=== PATIENT | female | born 1985 | race African-American/Black ===

== ENCOUNTER 2017-08-04 15:29 | Emergency (ER) | payer MEDICAID ==
[~2017-08-04] VITALS: Ht 144.8 cm; Wt 68.0 kg
--- NOTE | 2017-08-04 16:00 | NUR ---
PT TO ED ROOM 09. PT STATES SHE HAS ROOM RESERVED AT [facility] AND NEEDS MEDICAL CLEARANCE. A/A/O.
--- NOTE | 2017-08-04 16:05 | NUR ---
URINE OBTAINED FROM PATIENT AND SEND TO LAB.
--- NOTE | 2017-08-04 16:12 | NUR ---
URINE COLLECTED AND SENT TO LAB
--- NOTE | 2017-08-04 16:12 | NUR ---
SEEN AND EVALUATED BY ED PROVIDER.
[2017-08-04 16:25] LABS: APPEARANCE,URINE Turbid (CLEAR); BILIRUBIN,URINE SMALL (NEGATIVE); BLOOD, URINE Large Ery/uL (NEGATIVE); COLOR,URINE Red (YELLOW); KETONES,URINE 15 (NEGATIVE); LEUKOCYTE ESTERASE ,URINE Negative (NEGATIVE); NITRITE, URINE Negative (NEGATIVE); PROTEIN,URINE 100 mg/dl (NEGATIVE); UGLUCOSE Negative (NEGATIVE)
[2017-08-04 16:27] LABS: BASOPHILS # (AUTO) 0.5 /CMM (0.0-0.2); BASOPHILS % (AUTO) 2.1 % (0.0-2.0); EOSINOPHILS # (AUTO) 0.1 /CMM (0.0-0.7); EOSINOPHILS % (AUTO) 0.3 % (0.0-6.0); HEMATOCRIT 36 % (33-45); HEMOGLOBIN 11.9 g/dL (11.5-14.8); LYMPHOCYTES # (AUTO) 3.1 /CMM (0.8-4.8); LYMPHOCYTES % (AUTO) 14.4 % (20.0-44.0); MEAN CORPUSCULAR HEMOGLOBIN 28 PG (26.0-33.0); MEAN CORPUSCULAR HGB CONC 33 g/dl (31.0-36.0); MEAN CORPUSCULAR VOLUME 82 fL (82-100); MONOCYTES # (AUTO) 1.4 /CMM (0.1-1.30); MONOCYTES % (AUTO) 6.4 % (2.0-12.0); NEUTROPHILS # (AUTO) 16.4 /CMM (1.8-8.9); NEUTROPHILS % (AUTO) 76.8 % (43.0-81.0); PLATELET COUNT (AUTO) 641 /CMM (150-450); RDW COEFFICIENT OF VARIATION 17.4 (11.5-15.0); RED BLOOD CELL COUNT(AUTO) 4.31 MIL/uL (4.0-5.2); WHITE BLOOD COUNT (AUTO) 21.5 K/uL (4.3-11.0)
[2017-08-04 16:37] LABS: CALCIUM, SERUM 9.7 mg/dL (8.5-10.1); CARBON DIOXIDE 22 mmol/L (21-32); CHLORIDE 102 mmol/L (98-107); CREATININE 0.8 mg/dL (0.6-1.3); GLUCOSE 129 mg/dL (74-106); POTASSIUM 3.2 mmol/L (3.5-5.1); SODIUM SERUM 137 mmol/L (136-145); UREA NITROGEN, BLOOD 6 mg/dL (7-18)
[2017-08-04 16:43] LABS: ALANINE AMINOTRANSFERASE 17 U/L (12-78); ALBUMIN 4.5 g/dL (3.4-5.0); ALCOHOL, BLOOD < 3 mg/dL (0-0); ALKALINE PHOSPHATASE 90 U/L (46-116); ASPARTATE AMINOTRANSFERASE 15 U/L (15-37); BILIRUBIN,DIRECT 0.1 mg/dL (0.0-0.2); BILIRUBIN,TOTAL 0.7 mg/dL (0.2-1.0); TOTAL PROTEIN, SERUM 8.4 g/dL (6.4-8.2)
[2017-08-04 16:44] LABS: ACETAMINOPHEN < 2 ug/ml (10-30)
[2017-08-04 16:48] LABS: BACTERIA,URINE None seen /HPF (None Seen); RBC,URINE 51-80 /HPF (0-2); SQUAMOUS EPITHELIAL CELL,UR Few /HPF (None Seen); WBC,URINE 0-2 /HPF (0-3)
--- NOTE | 2017-08-04 17:37 | NUR ---
RN TO RN REPORT AT [facility] . *ASK FOR CHARGE NURSE
[2017-08-04 18:29] VITALS: BP 138/88
== END 2017-08-04 18:32 ==
LOC: ER 15:31
DX: Z02.79 Encounter for issue of other medical certificate (principal); F20.9 Schizophrenia, unspecified; F31.9 Bipolar disorder, unspecified; Z79.899 Other long term (current) drug therapy
CPT/HCPCS: 36415; 80048; 80076; 80305; 80329; 81001; 84703; 85025; 99285; A4606 ×2; G0480 ×2; Z7610 ×2; 81000-TC

== ENCOUNTER 2019-03-19 01:22 | Emergency (ER) | payer MEDICAID ==
[~2019-03-19] VITALS: Ht 144.8 cm; Wt 63.5 kg
--- NOTE | 2019-03-19 01:57 | NUR ---
PT BIBSELF C/C RLQ ABD PAIN X3 DAYS, -DYSURIA, FOUL ODOR FROM PERINEAL AREA. PT AOX4. NAD NOTED. RESP EVEN AND UNLABORED. PT ON MONITOR IN BED 6. WILL CONTINUE TO MONITOR.
[2019-03-19] MEDS ORDERED: HYDROCODONE/APAP 5/325MG 1 EACH TABLET PO ONE (02:30)
[2019-03-19] MEDS ORDERED: CEFTRIAXONE 1 G VIAL IM ONE (02:30)
[2019-03-19 02:38] LABS: BASOPHILS # (AUTO) 0.1 /CMM (0.0-0.2); BASOPHILS % (AUTO) 0.7 % (0.0-2.0); EOSINOPHILS % (AUTO) 0.2 % (0.0-6.0); HEMATOCRIT 39 % (33-45); HEMOGLOBIN 13.2 g/dL (11.5-14.8); LYMPHOCYTES % (AUTO) 16.9 % (20.0-44.0); MEAN CORPUSCULAR HGB CONC 34 g/dl (31.0-36.0); MEAN CORPUSCULAR VOLUME 95 fL (82-100); MONOCYTES # (AUTO) 0.8 /CMM (0.1-1.30); MONOCYTES % (AUTO) 6.6 % (2.0-12.0); NEUTROPHILS # (AUTO) 9.1 /CMM (1.8-8.9); NEUTROPHILS % (AUTO) 75.6 % (43.0-81.0); PLATELET COUNT (AUTO) 409 /CMM (150-450); RED BLOOD CELL COUNT(AUTO) 4.12 MIL/uL (4.0-5.2)
[2019-03-19 02:44] LABS: CALCIUM, SERUM 9.4 mg/dL (8.5-10.1); CREATININE 0.9 mg/dL (0.6-1.3); POTASSIUM 3.1 mmol/L (3.5-5.1)
[2019-03-19 02:50] LABS: ALBUMIN 4.4 g/dL (3.4-5.0); BILIRUBIN,DIRECT 0.2 mg/dL (0.0-0.2); BILIRUBIN,TOTAL 0.9 mg/dL (0.2-1.0); TOTAL PROTEIN, SERUM 7.9 g/dL (6.4-8.2)
[2019-03-19] MEDS ORDERED: HYDROCODONE/APAP 5/325MG 1 EACH TABLET ONE (03:09)
[2019-03-19] MEDS ORDERED: CEFTRIAXONE 1 G VIAL ONE (03:09)
--- NOTE | 2019-03-19 03:23 | NUR ---
PT MOVED TO BED 16 FOR PELVIC EXAM
[2019-03-19 04:00] VITALS: BP 121/74
--- NOTE | 2019-03-19 05:06 | NUR ---
Patient given written and verbal discharge instructions. Patient verbalizes understanding of instructions. Patient is ambulatory with steady gait. . Patient given list of available shelters in surrounding area. pt was also provided with snacks and tap card fro transportation.
== END 2019-03-19 05:14 | disposition home or self-care (01) ==
LOC: ER 01:25
DX: N83.201 Unspecified ovarian cyst, right side (principal); N80.1 Endometriosis of ovary; F20.9 Schizophrenia, unspecified; F31.9 Bipolar disorder, unspecified; F17.200 Nicotine dependence, unspecified, uncomplicated
CPT/HCPCS: 36415; 76705; 76856; 80048; 80076; 83690; 84702; 85025; 85730; 96372; 99284; A6402; J0696

== ENCOUNTER 2021-05-16 17:11 | Emergency (ER) | payer MEDICAID, OTHER ==
[~2021-05-16] VITALS: Ht 154.9 cm; Wt 68.0 kg
--- NOTE | 2021-05-16 17:44 | NUR ---
covid swab collected and sent to lab.
[2021-05-16 17:52] LABS: BASOPHILS # (AUTO) 0.1 K/uL (0.0-0.2); BASOPHILS % (AUTO) 0.5 % (0.0-2.0); EOSINOPHILS % (AUTO) 0.2 % (0.0-6.0); HEMATOCRIT 36 % (33-45); HEMOGLOBIN 12.1 g/dL (11.5-14.8); LYMPHOCYTES # (AUTO) 2.1 K/uL (0.8-4.8); LYMPHOCYTES % (AUTO) 15.3 % (20.0-44.0); MEAN CORPUSCULAR HGB CONC 34 g/dl (31.0-36.0); MEAN CORPUSCULAR VOLUME 113 fL (82-100); MONOCYTES % (AUTO) 14.4 % (2.0-12.0); NEUTROPHILS # (AUTO) 9.5 K/uL (1.8-8.9); NEUTROPHILS % (AUTO) 69.6 % (43.0-81.0); PLATELET COUNT (AUTO) 266 K/uL (150-450); RED BLOOD CELL COUNT(AUTO) 3.19 MIL/uL (4.0-5.2); WHITE BLOOD COUNT (AUTO) 13.6 K/uL (4.3-11.0)
[2021-05-16 17:58] LABS: CARBON DIOXIDE 24 mmol/L (21-32); CHLORIDE 97 mmol/L (98-107); CREATININE 1.1 mg/dL (0.6-1.3); GLUCOSE 127 mg/dL (74-106); POTASSIUM 2.9 mmol/L (3.5-5.1); SODIUM SERUM 139 mmol/L (136-145); UREA NITROGEN, BLOOD 9 mg/dL (7-18)
[2021-05-16 18:08] LABS: ALANINE AMINOTRANSFERASE 72 U/L (12-78); ALBUMIN 3.8 g/dL (3.4-5.0); ALKALINE PHOSPHATASE 157 U/L (46-116); ASPARTATE AMINOTRANSFERASE 271 U/L (15-37); BILIRUBIN,DIRECT 0.9 mg/dL (0.0-0.2); BILIRUBIN,TOTAL 1.8 mg/dL (0.2-1.0)
[2021-05-16 18:10] LABS: ACETAMINOPHEN 0 ug/ml (10-30)
[2021-05-16 18:11] LABS: ALCOHOL, BLOOD < 3 mg/dL (0-0)
[2021-05-16] MEDS ORDERED: POTASSIUM CHLORIDE 20 MEQ TAB.PRT.SR PO ONE ×2 (18:30→19:30)
[2021-05-16 18:48] LABS: LYMPHOCYTES % (MANUAL) 18 % (16-48); MONOCYTES % (MANUAL) 13 % (0-11.0); NEUTROPHILS % (MANUAL) 69 (42-76)
[2021-05-16] MEDS ORDERED: OLANZAPINE 5 MG TABLET PO ONE (20:30)
--- NOTE | 2021-05-16 20:30 | NUR ---
URINE SPECIMEN COLLECTED AND SENT TO LAB.
--- NOTE | 2021-05-16 20:30 | NUR ---
ASSUMED CARE AT 2030. PT BIBFAMILY C/O AUDITORY HALLUCINATIONS AND SI WITHOUT A SPECIFIC PLAN. PT DENIES HI.PT AAOX4 BREATHING EVENLY AND UNLABORED. PT ATTACHED TO MONITOR AND POX. PT GIVEN BLANKET AND CALL LIGHT WITHIN REACH. NEEDS ATTENDED TO.
[2021-05-16] MEDS ORDERED: OLANZAPINE 5 MG TABLET ONE (20:36)
[2021-05-16 20:47] LABS: BILIRUBIN,URINE MODERATE (NEGATIVE); COLOR,URINE YELLOW (YELLOW); LEUKOCYTE ESTERASE ,URINE MODERATE (NEGATIVE); NITRITE, URINE NEGATIVE (NEGATIVE); PH,URINE 6.5 (5.0-8.0); PROTEIN,URINE TRACE mg/dl (NEGATIVE); UGLUCOSE NEGATIVE (NEGATIVE)
[2021-05-16 21:05] LABS: BACTERIA,URINE 3+ /HPF (None Seen); WBC,URINE 21-50 /HPF (0-3)
[2021-05-16] MEDS ORDERED: CEPHALEXIN MONOHYDRATE 500 MG CAPSULE PO ONE (21:38)
[2021-05-16] MEDS: CEPHALEXIN MONOHYDRATE 500 MG CAPSULE PO SCH (21:44)
--- NOTE | 2021-05-16 22:26 | NUR ---
CLINICAL AND FACESHEET FAXED TO [facility]TAKE FOR VOLUNTARY PSYCH ADMISSION.
--- NOTE | 2021-05-17 00:35 | NUR ---
pt resting comfortably. VSS
--- NOTE | 2021-05-17 04:50 | NUR ---
[facility] REQUESTING POTASSIUM REDRAW BEFORE ACCEPTING PT.
--- NOTE | 2021-05-17 04:56 | NUR ---
PT REFUSING REPEAT BLOOD DRAW.
--- NOTE | 2021-05-17 06:06 | NUR ---
BLOOD DRAWN BY FEDER[employer]IATION COMMISSIONER FOR REPEAT POTASSIUM.
[2021-05-17 06:23] LABS: CALCIUM, SERUM 8.8 mg/dL (8.5-10.1); CREATININE 0.7 mg/dL (0.6-1.3)
[2021-05-17] MEDS ORDERED: CEPH500T PO (06:55)
--- NOTE | 2021-05-17 07:15 | NUR ---
FACE SHEE AND CLINICALS ALONG W/ RECENT POTASSIUM LEVEL WAS FAXED TO [facility],
--- NOTE | 2021-05-17 08:37 | NUR ---
CALLED TO FOLLOW UP CASE AND SPOKE TO ELMIRA. AT THE MOMENT "WAITING FOR CHARGE NURSE" WAS THE ONLY ANSWER GIVEN PER ELMIRA. STATED WILL CALL BACK WHEN.
[2021-05-17] MEDS ORDERED: CEPHALEXIN MONOHYDRATE 500 MG CAPSULE PO ONE ×2 (08:58→16:32)
[2021-05-17] MEDS: CEPHALEXIN MONOHYDRATE 500 MG CAPSULE PO SCH ×2 (09:00→16:34)
--- NOTE | 2021-05-17 10:35 | NUR ---
Social Service consult: Social service consult requested for suicidal ideation, hallucinations and homelessness. Pt is a 35-year-old, female. SW met with pt at her bedside in the emergency department. Pt presented alert and oriented x2, name and time. Pt was not oriented to place or situation. Pt presented with a flat affect. Pt presented lethargic. Pt appeared appropriately groomed. Per chart, pt was brought in by family on 05/16/21 with complaints of auditory hallucinations and suicidal ideation without a plan. Pt will be transferred to [facility] for further evaluation, if accepted. Per pts toxicology report, pt is positive for amphetamine, cocaine, and cannabis. Pt stated that she is currently homeless. Pt stated that she receives [employer] as a source of income. Pt denied current suicidal or homicidal ideation and hallucinations. Pt denied history of substance use. Pt was lethargic and unable to provide SW with adequate history to complete assessment. Pt stated, "speak to my sister." Pt provided SW with consent to speak with pts sister, Marcie Conroy, . Pt confirmed request to be transferred to [facility] for psychiatric admission. SW contacted pts sister, Marcie Conroy. She stated that the pt has been homeless for the last 2-3 years but has been living with others intermittently. Pt is ambulatory. Pt has had a history of substance use and pt has been "self-medicating and sleeping a lot for months at a time." Pt has a history of Schizophrenia and Bipolar Disorder and has not had access to medication. Pt has a history of auditory and visual hallucinations. Pt was recently having a conversation with herself. Pt has been increasingly paranoid and has had thoughts that "someone will put something in her food, put a hex on her, or hurt her." Pt has expressed to Marcie that she has been feeling hopeless and depressed. Pt has a hx of multiple psychiatric admissions. SW offered the pt homeless and mental health resources. Pt accepted the resources and thanked SW. Pt signed the homeless waiver and SW filed waiver in the pts chart. Pts clinicals have already been faxed to [facility] for review. PLAN: Pt will discharge to [facility], if accepted. No further SS intervention at this time, however, SW will remain available as needed. RESOURCES: Year-round shelters: [address] [address] ; [facility] [place] [address] [place] [address]; [facility] Rywkvip1731 [facility] [address] SPA 4 | [facility] Recreation [place] Provider: First to Serve Address: [address], [address] # of Beds: 48 Population Served: [facility] Provider: First to Serve Address: [address] [facility], [address] # of Beds: 73 Population Served: [facility] 6 | [facility] Provider: Home at Last Address: [address] [facility], [address] # of Beds: 63 Population Served: [facility] 3 | [facility] Provider: [facility] [place] Address: [address] [place] [address] # of Beds: 75 Population Served: [facility] 8 | [facility] Provider: [facility] [place] Address: [address] [facility], [address] # of Beds: 80 Population Served: [facility] 1 | [facility] Provider: [facility] [place] Address: [address] [place] [address], [address] # of Beds: 85 Population Served: [facility] 2 | [facility] Provider: June [facility] Address: Confidential (please call for location) # of Beds: 52 Population Served: [facility] 4 | [facility] Provider: [facility] Address: [address] [facility], [address] # of Beds: 49 Population Served: [facility] Provider: First To Serve Address: [address] [facility], [address] # of Beds: 27 Population Served: [facility] Hygiene: [facility] Hospital[facility]: [address] [address] Pett[address] [place] ; [facility] [address] [place] City[place]oo [facility] ; [facility] [address] [place] . Food Resources: [place] [employer] at [facility]- [address] [place]; Meet Each Need with Dignity ([facility]) [address] Motion Picture & Television HospitalArti [place]; [facility] Food Pantry 4393 [facility]; [facility] [address] [facility] [address]. Mental Health resources provided: [facility] [address] [place] [address] ; [facility] [address] [facility] [address], [place] [address] ; [facility] [address] [place], [place] [phone] ; [facility] [address] [place], [place] [phone] Healthcare Clinics: [facility] [address] [facility], [address] [place]. [place] ; [facility] [address] [facility] [address] [place] [address]; [facility] [address] [place] [address] [phone] Counseling--Outpatient [facility] [address] [facility], [place] [address] (Specializes in in-depth psychotherapy for emotional distress: anxiety, depression, interpersonal conflicts, life transitions, childhood abuse) PSYCHIATRIC OUTPATIENT SERVICES [facility] Partial Hospitalization and Intensive Outpatient Program (Managed Care and [place] Only) [address] [facility] [phone] [facility] Partial Hospitalization and Outpatient Program [address] [place] [address] [facility] Partial Hospitalization and Outpatient Program [address] [place] Cassie [facility] [place] [address] [facility] [address] [address] [place] [address] [facility] Partial Hospitalization and Outpatient Program [address] eli[place], [place] [phone]
--- NOTE | 2021-05-17 12:20 | NUR ---
PT PROVIDED WITH A MEAL
--- NOTE | 2021-05-17 13:11 | NUR ---
CALLED CHRISSIE FROM [facility]. AT THE MOMENT ON HOLD FOR ALL ADMISSIONS DUE TO HAVING 2 POSITIVE COVID PATIENT IN UNIT. NO CURRENT BED ASSIGNMENT WILL CALL US BACK. PER CHRISSIE MIGHT BE ABLE TO ACCOMODATE PATIENT UNTIL AFTER 1700.
--- NOTE | 2021-05-17 14:30 | NUR ---
PT IN BED RESTING WITH EYES CLOSE. NAD NOTED
--- NOTE | 2021-05-17 17:00 | NUR ---
CALLED TO SPEAK WITH CHRISSIE FROM [facility]. UNABLE TO TALK SO SPOKE WITH JOSE JUAN AND ARE CURRENLTY AWAITING FOR KURT RUIZ TO GIVE US BED ASSIGNMENT.
--- NOTE | 2021-05-17 17:30 | NUR ---
SPOKE TO [facility]. NO BED ASSIGNMENT YET. WILL CALL US BACK.
--- NOTE | 2021-05-17 18:30 | NUR ---
CALLED TO FOLLOW UP WITH [facility] REGARDING ADMISSION. SPOKE TO JOSE JUAN AND THEY ARE REQUESTING UPDATED VITAL SIGNS. NOTIFIED JOSE JUAN THAT PATIENT HAVE BEEN PUSHED BACK ADMISSION SINCE THE MORNING BUT PER HOUSE [facility] REQUESTING 1800 VITAL SIGNS IN ORDER TO ACCOMODATE.
--- NOTE | 2021-05-17 20:00 | NUR ---
pt resting with eyes closed. VSS
[2021-05-17] MEDS ORDERED: OLANZAPINE 5 MG TABLET ONE (20:14)
[2021-05-17] MEDS ORDERED: OLANZAPINE 5 MG TABLET PO ONE (20:30)
--- NOTE | 2021-05-17 22:45 | NUR ---
Patient is resting comfortably in bed with eyes closed. Easily aroused. VSS
--- NOTE | 2021-05-18 00:45 | NUR ---
pt attached to monitor and pox. vss
--- NOTE | 2021-05-18 03:10 | NUR ---
PT ACCEPTED TO [facility]. [phone] EXTENSION 6387 ROOM NUMBER AND DOCTOR PROVIDED UPON GIVING REPORT.
--- NOTE | 2021-05-18 03:20 | NUR ---
[facility] called for transport. Trip#[id number]
--- NOTE | 2021-05-18 03:30 | NUR ---
Patient is resting comfortably in bed with eyes closed. Easily aroused. VSS
--- NOTE | 2021-05-18 03:50 | NUR ---
[facility] eta 0848.
--- NOTE | 2021-05-18 05:06 | NUR ---
called [facility] and was infromed by Sana, that they have no record of this patient being accepted. Reequested that we fax over clinical info to [phone]
--- NOTE | 2021-05-18 05:07 | NUR ---
clinical info faxed to [facility]
--- NOTE | 2021-05-18 05:27 | NUR ---
Palmer at [facility] intake will fax over a psych form to [facility] to see if pt will be accepted there. Per Palmer, "we may have to start the process over again because yesterday during day shift, pt refused to go to to [facility]" Unknown person notified transfer center that pt refused to be transferred to [facility]. Per pt, she is willing to go to either facility.
--- NOTE | 2021-05-18 07:33 | NUR ---
CALLED SALES TEAM LEADER MARIA EUGENIA FROM [facility] AND AT THE MOMENT HAVE NO FEMALE BEDS. MAY BE ABLE TO ACCOMODATE AFTER 11 WHEN THEY HAVE DISCHARGES.
--- NOTE | 2021-05-18 07:49 | NUR ---
RECIEVED A CALL FROM MARIA EUGENIA FROM [facility]. PT ACCEPTED TO UNIT. PLEASE CALL REPORT AT [phone] AND ASK TO BE CONNECTED TO UNIT 1.
--- NOTE | 2021-05-18 07:54 | NUR ---
REPORT GIVEN TO RUDI MANN AT [facility].
[2021-05-18] MEDS ORDERED: CEPHALEXIN MONOHYDRATE 500 MG CAPSULE PO ONE (08:39)
[2021-05-18] MEDS: CEPHALEXIN MONOHYDRATE 500 MG CAPSULE PO SCH (08:57)
[2021-05-18 08:58] VITALS: BP 118/77
--- NOTE | 2021-05-18 08:58 | NUR ---
patient picked up by private ambulance going to [facility] in no distress.
== END 2021-05-18 08:58 ==
LOC: ER 17:17
DX: R45.851 Suicidal ideations (principal); F15.10 Other stimulant abuse, uncomplicated; F14.10 Cocaine abuse, uncomplicated; F12.10 Cannabis abuse, uncomplicated; N39.0 Urinary tract infection, site not specified; E87.6 Hypokalemia; F19.10 Other psychoactive substance abuse, uncomplicated; Z20.822 Contact with and (suspected) exposure to COVID-19; F20.9 Schizophrenia, unspecified; F31.9 Bipolar disorder, unspecified; Z91.14 Patient's other noncompliance with medication regimen; D72.829 Elevated white blood cell count, unspecified
CPT/HCPCS: 36415 ×3; 80048 ×2; 80076; 80143; 80307; 80320; 81001; 84702; 85007; 85025; 87086; 87426; 99285; C9803; G0480

== ENCOUNTER 2021-05-18 11:21 | Emergency (ER) | payer OTHER ==
[~2021-05-18] VITALS: Ht 154.9 cm; Wt 68.0 kg
[~2021-05-18 11:21] MED LIST: CEPH500T PO
--- NOTE | 2021-05-18 11:30 | NUR ---
SENT BACK FROM [facility], NURSES AT PSYCH PLACE REQUESTING NEW K+ READ AND TEST S/P BEING MEDICALLY CLEARED. PATIENT HAS NO COMPLAINTS. PATIENT WAS INITIALLY ACCEPTED AT [facility]. PT STILL WANTS TO GO VOLUNTARY AT A PSYCHIATRIC FACILITY FOR SUICIDAL IDEATION WITH NO SPECIFIC PLAN. PATIENT A/OX4, AMBULATORY WITH STEADY GAIT. NO DISTRESS NOTED. CALLED SECURITY FOR WANDING. BELONGINGS PLACED IN THE LOCKER ROOM.
[2021-05-18] MEDS ORDERED: POTASSIUM CHLORIDE 20 MEQ TAB.PRT.SR PO ONE ×3 (11:36→12:30)
--- NOTE | 2021-05-18 11:44 | NUR ---
PHLEB AT BEDSIDE. COVID SWAB SENT.
--- NOTE | 2021-05-18 11:53 | NUR ---
URINE SENT TO LAB.
[2021-05-18 11:55] LABS: BASOPHILS # (AUTO) 0.1 K/uL (0.0-0.2); BASOPHILS % (AUTO) 0.8 % (0.0-2.0); EOSINOPHILS % (AUTO) 0.9 % (0.0-6.0); HEMATOCRIT 38 % (33-45); HEMOGLOBIN 12.8 g/dL (11.5-14.8); LYMPHOCYTES % (AUTO) 22.8 % (20.0-44.0); MEAN CORPUSCULAR HGB CONC 33 g/dl (31.0-36.0); MEAN CORPUSCULAR VOLUME 114 fL (82-100); MONOCYTES # (AUTO) 1.1 K/uL (0.1-1.30); MONOCYTES % (AUTO) 12.4 % (2.0-12.0); NEUTROPHILS # (AUTO) 5.6 K/uL (1.8-8.9); NEUTROPHILS % (AUTO) 63.1 % (43.0-81.0); PLATELET COUNT (AUTO) 337 K/uL (150-450); RED BLOOD CELL COUNT(AUTO) 3.36 MIL/uL (4.0-5.2); WHITE BLOOD COUNT (AUTO) 8.9 K/uL (4.3-11.0)
[2021-05-18 12:02] LABS: CARBON DIOXIDE 28 mmol/L (21-32); CHLORIDE 102 mmol/L (98-107); CREATININE 0.7 mg/dL (0.6-1.3); GLUCOSE 145 mg/dL (74-106); POTASSIUM 3.2 mmol/L (3.5-5.1); SODIUM SERUM 139 mmol/L (136-145); UREA NITROGEN, BLOOD 6 mg/dL (7-18)
[2021-05-18 12:07] LABS: BILIRUBIN,URINE MODERATE (NEGATIVE); COLOR,URINE DARK YELLOW (YELLOW); LEUKOCYTE ESTERASE ,URINE Negative (NEGATIVE); NITRITE, URINE Negative (NEGATIVE); PH,URINE 6.5 (5.0-8.0); PROTEIN,URINE 30 mg/dl (NEGATIVE); UGLUCOSE Negative (NEGATIVE)
[2021-05-18 12:07] LABS: ACETAMINOPHEN 0 ug/ml (10-30); ALANINE AMINOTRANSFERASE 61 U/L (12-78); ALBUMIN 3.5 g/dL (3.4-5.0); ALCOHOL, BLOOD < 3 mg/dL (0-0); ALKALINE PHOSPHATASE 141 U/L (46-116); ASPARTATE AMINOTRANSFERASE 164 U/L (15-37); BILIRUBIN,DIRECT 0.5 mg/dL (0.0-0.2); BILIRUBIN,TOTAL 0.9 mg/dL (0.2-1.0); TOTAL PROTEIN, SERUM 7.6 g/dL (6.4-8.2)
[2021-05-18] MEDS ORDERED: POTASSIUM CL. PREMIX PERIPHER. 200 ML ONE (12:20)
[2021-05-18] MEDS: POTASSIUM CL. PREMIX PERIPHER. 50 ML IV SCH ×2 (12:30→13:31)
[2021-05-18 12:57] LABS: BACTERIA,URINE Moderate /HPF (None Seen); RBC,URINE 0-2 /HPF (0-2); SQUAMOUS EPITHELIAL CELL,UR Moderate /HPF (None Seen)
[2021-05-18 12:58] LABS: URINE AMORPHOUS URATE Moderate /HPF (None Seen)
[2021-05-18 15:20] LABS: CALCIUM, SERUM 8.9 mg/dL (8.5-10.1); CREATININE 0.6 mg/dL (0.6-1.3); POTASSIUM 3.9 mmol/L (3.5-5.1)
--- NOTE | 2021-05-18 15:37 | NUR ---
PATIENT'S REPEAT POTASSIUM IS NORMAL, LAST ORDER OF KDUR PO CANCELLED, INSTRUCTION GIVEN BY DR. QUINONEZ.
[2021-05-18 15:44] VITALS: BP 131/92
--- NOTE | 2021-05-18 15:44 | NUR ---
PATIENT IS RESTING IN BED, NO DISTRESS NOTED.
--- NOTE | 2021-05-18 15:51 | NUR ---
[facility] AWAITING CALL BACK FOR ADMITTANCE.
--- NOTE | 2021-05-18 16:26 | NUR ---
"SS consult: SS consult requested for SI and possible homelssness. The pt. is a 35 year old Black female who came in for medical clarance for pending admisison to [facility] on a voluntary basis. SW met with pt. bedside. The pt. is depressed with distressed affect. Pt. is guarded and refused to comply with intervew. Pt. requestd that SW return at a later time. Pt.began crying. SW attempted to validate pt.'s feelings. Pt. did not want to elaborate about what was making her cry. SW placed homeless waiver and resources in pt.'s chart for nursing to follow up upon discharge. SW will remain available as needed. Resources provided include: Year-round shelters: [place] [address] [place] [address] ; [facility] [place] [address] [place] [address]; [facility] [facility] Lpsvmve[address]77 [facility] [address] Winter Shelters: [facility] Provider: [facility] Address: [address] [facility], [address] # of Beds: 47 Population Served: [facility] 6 | [facility] Sana [place] Provider: Home at Last Address: [address], [address] # of Beds: 66 Population Served: [facility] [place] Provider: First to Serve Address: [address] [facility], [address] # of Beds: 56 Population Served: [facility] Vern ChapitoArti JarquinOzan Provider: /[facility] Address: [address] [facility], [address] # of Beds: 49 Population Served: [facility] 8 | [facility] Provider: First to Serve Address: [address] [facility], [address] # of Beds: 37 Population Served: [facility] Hygiene: [facility]: [address] [address]lin Pett[address] [place] ; [facility] [address] [facility] [place] ; [facility] [address] [place] . Food Resources: [place] [employer] [facility] at [facility]- [address]. [place]; Meet Each Need with Dignity ([facility]) [address] [facility]; [facility] Food Pantry 4310 [facility]; [facility] 3723 [facility]. Mental Health resources provided: [facility] [address] [place], [place] [phone] ; [facility] [address] [facility] [address] 2, [place], [place] [phone] ; [facility] [address] [facility] [place], [place] [phone] ; [facility] [address] [place], [place] [phone] Healthcare Clinics: [facility] [address] [facility], [address] [place]. [place] ; [facility] [address] [facility] [address] [place] [address]; [facility] [address] [place] [address] [phone]) [phone] Counseling--Outpatient [facility] [address] [facility], [place] [address] (Specializes in in-depth psychotherapy for emotional distress: anxiety, depression, interpersonal conflicts, life transitions, childhood abuse) [facility] [address] [place] [address] (Assist with solving problem marital difficulties, separation & divorce, aging parents, & grief, chronic & terminal illness) [facility] [address] [place] [address] (Deal with loss & grief, anxiety, marital difficulties) Homebound/Mental Health Services [address] [facility], [address] [place] [address] (Provide in-home mental services to people who are incapable of leaving their homes) Organization for Needs of the Elderly Senior Service/Resource Center [address] [place] [address] [facility] [address] [place] [address] PSYCHIATRIC OUTPATIENT SERVICES [facility] Partial Hospitalization and Intensive Outpatient Program (Managed Care and [place] Only)[address] [facility]. [facility] [phone] [facility] Partial Hospitalization and Outpatient Ichmsqd36241 [facility] [address] [place], [place] [phone] [facility] Mental Health [place] Pzq76165 [facility] [address] [place], [place] [phone] [facility] Partial Hospitalization and Outpatient Jhklhka61001 [place], [phone] Substance Abuse resources provided included: [facility] Substance Abuse Self-Helpline ([facility]) ; CRI -HELP [address] [facility]. [place] [address] ; [facility] [address] [facility] [address] ; [facility] [address] [facility] vdSt. Peter's Hospital [address] ; [facility] [address] [facility] [address] ; [facility] 4940 [facility] [address] ; [facility] 909 [facility] [phone] ; [facility] Substance Abuse Helpline([facility] ; [facility] Family Counseling ; [facility] [place]; [facility] [place]; Cri-Help [place]; I-AD[facility] Inter [facility] Drug Abuse Recovery Maxim Ericsrinivasan; [place] [facility] Andrés; Altonah Sumner Juliannecitizens baptist; [facility], [facility]. [place]; Alcoholics Anonymous -SFV; Rb-Pfxn-Fbdsbum ; Marijuana Anonymous -SFV; Narcotics Anonymous www.na.org;"
--- NOTE | 2021-05-18 19:08 | NUR ---
PATIENT IS ASLEEP, EASILY AROUSABLE. NO DISTRESS NOTED.
--- NOTE | 2021-05-18 19:11 | NUR ---
CALLED TO FOLLOW UP WITH PATIENT STATUS ON PLACEMENT WITH [facility]. AT THE MOMENT ARE CURRENTLY REVIEWING CLINICALS AT [facility]. I ASKED PATIENT IF SHE IS OKAY WITH [facility] AND SHE STATES "YES", NOTIFIED RJ WITH [facility] AND HE WILL FAX CLINICALS OVER TO [facility]. CURRENTLY AWAITING CALL BACK.
--- NOTE | 2021-05-18 20:44 | NUR ---
ACCEPTED AT [facility] UNIT [address] DR ORTIZ
--- NOTE | 2021-05-18 20:45 | NUR ---
Patient is resting comfortably in bed with eyes closed. Easily aroused. VSS
--- NOTE | 2021-05-18 20:52 | NUR ---
PT WILL BE TRANSPORTED TO [facility] IN 75 TO 90 MINS PER ALEXI AT [facility].
--- NOTE | 2021-05-18 22:13 | NUR ---
REPORT GIVEN TO MELISSA MANN FOR CONTINUATION OF CARE.
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
--- NOTE | 2021-05-18 22:52 | NUR ---
PT WAS PICKED UP BY [facility] AND WAS TRANSFERRED TO [facility] IN STABLE CONDITION
== END 2021-05-18 22:52 ==
LOC: ER 11:29
DX: E87.6 Hypokalemia (principal); Z20.822 Contact with and (suspected) exposure to COVID-19; F31.9 Bipolar disorder, unspecified; F20.9 Schizophrenia, unspecified
CPT/HCPCS: 36415; 80048 ×2; 80076; 80143; 80307; 80320; 81001; 84703; 85025; 87086; 87426; 96365; 96366; 99285; C9803; J3480; G0480

== ENCOUNTER 2023-03-12 21:54 | Emergency (ER) | payer MEDICAID ==
[~2023-03-12] VITALS: Ht 175.3 cm; Wt 95.3 kg
[~2023-03-12 21:54] MED LIST changes: +METR500T PO
--- NOTE | 2023-03-12 22:22 | NUR ---
[id number]. CC LOW BP 67/66, SEVERE ABDL PAIN X3 HRS. + SEROQUEL TAB ASSEMBLY WORKER. PT HX OF ENDOMETRIOSIS.
--- NOTE | 2023-03-12 22:23 | NUR ---
20GA TO LEFT AC ESTABLISHED; BLOOD WORK COLLECTED AND SENT TO LAB
--- NOTE | 2023-03-12 22:25 | NUR ---
AT BEDSIDE FOR EVAL
--- NOTE | 2023-03-12 22:25 | NUR ---
PT UNABLE TO PROVIDE URINE AT THIS TIME
--- NOTE | 2023-03-12 23:05 | NUR ---
PATIENT TAKEN TO CT VIA MARIEL
--- NOTE | 2023-03-12 23:15 | NUR ---
PATIENT RETURNED FROM CT
[2023-03-12 23:56] LABS: BASOPHILS % (AUTO) 0.4 % (0.0-2.0); EOSINOPHILS % (AUTO) 2.2 % (0.0-6.0); HEMATOCRIT 38 % (33-45); HEMOGLOBIN 12.5 g/dL (11.5-14.8); LYMPHOCYTES # (AUTO) 2.6 K/uL (0.8-4.8); LYMPHOCYTES % (AUTO) 27.5 % (20.0-44.0); MEAN CORPUSCULAR HGB CONC 33 g/dl (31.0-36.0); MEAN CORPUSCULAR VOLUME 91 fL (82-100); MONOCYTES # (AUTO) 0.7 K/uL (0.1-1.30); MONOCYTES % (AUTO) 7.6 % (2.0-12.0); NEUTROPHILS # (AUTO) 5.9 K/uL (1.8-8.9); NEUTROPHILS % (AUTO) 62.3 % (43.0-81.0); PLATELET COUNT (AUTO) 342 K/uL (150-450); RED BLOOD CELL COUNT(AUTO) 4.21 MIL/uL (4.0-5.2); WHITE BLOOD COUNT (AUTO) 9.4 K/uL (4.3-11.0)
[2023-03-12 23:58] LABS: CALCIUM, SERUM 9.9 mg/dL (8.5-10.1); CREATININE 1.3 mg/dL (0.6-1.3)
[2023-03-13 00:03] LABS: BILIRUBIN,DIRECT 0.1 mg/dL (0.0-0.2); BILIRUBIN,TOTAL 0.5 mg/dL (0.2-1.0); TOTAL PROTEIN, SERUM 8.2 g/dL (6.4-8.2)
[2023-03-13] MEDS ORDERED: POTASSIUM CHLORIDE 20 MEQ TAB.PRT.SR PO ONE ×2 (01:00→01:41)
[2023-03-13] MEDS ORDERED: CIPR-262 PO (01:01)
[2023-03-13] MEDS ORDERED: HYDROCODONE/APAP 5/325MG TABLET ONE ×2 (02:03→11:57)
--- NOTE | 2023-03-13 02:26 | NUR ---
PT TOLERATED EATING SANDWICH AND DRINKING FLUIDS
--- NOTE | 2023-03-13 02:26 | NUR ---
PT TOLERATED ORAL PAIN MED FOR C/O ABDOMINAL PAIN
[2023-03-13] MEDS ORDERED: HYDROCODONE/APAP 5/325MG TABLET PO ONE ×2 (02:30→12:00)
--- NOTE | 2023-03-13 02:36 | NUR ---
PT NOTIFIED OF DISCHARGE STATUS, BUT STATES SHE CAN'T MOVE HER BODY SHE STILL HAS ABDOMINAL PAIN. VS REMAIN STABLE. NO N/V AFTER EATING A SANDWICH AND DRINKING FLUIDS.
[2023-03-13 07:17] LABS: ALCOHOL, BLOOD < 3 mg/dL (0-10)
--- NOTE | 2023-03-13 08:33 | NUR ---
COVID SWAB TAKEN
--- NOTE | 2023-03-13 10:30 | NUR ---
FAXED FACESHEET AND CLINICALS TO [facility]
--- NOTE | 2023-03-13 12:38 | NUR ---
URINE SAMPLE SENT TO LAB
--- NOTE | 2023-03-13 13:01 | NUR ---
FAXED UPDATED CLINICALS TO [facility]
[2023-03-13 14:45] VITALS: BP 119/60
[2023-03-13 15:47] LABS: BILIRUBIN,URINE 1+ (NEGATIVE); LEUKOCYTE ESTERASE ,URINE TRACE (NEGATIVE); NITRITE, URINE POSITIVE (NEGATIVE); PH,URINE 6.5 (5.0-8.0); PROTEIN,URINE 3+ mg/dl (NEGATIVE); UGLUCOSE TRACE mg/dL (NEGATIVE)
[2023-03-13 15:54] LABS: COLOR,URINE RED (YELLOW)
--- NOTE | 2023-03-13 15:55 | NUR ---
NEW URINE SAMPLE COLLECTED AND SENT TO LAB
--- NOTE | 2023-03-13 15:55 | NUR ---
LOSS CONTROL MANAGER AT BEDSIDE
[2023-03-13 16:04] LABS: BACTERIA,URINE 2+ /HPF (None Seen); RBC,URINE TOO NUMEROUS TO COUN /HPF (0-2); SQUAMOUS EPITHELIAL CELL,UR 0-2 /HPF (None Seen)
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
--- NOTE | 2023-03-13 16:51 | NUR ---
FAXED UA RESULTS TO [facility]
--- NOTE | 2023-03-13 17:24 | NUR ---
DONNY CALLED BACK AND PT IS ACCEPTED AT [facility]. COMMUNICATIONS ENGINEER WILL NEUROLOGY MANAGER PT.
--- NOTE | 2023-03-13 17:48 | NUR ---
REPORT GIVEN TO [facility] FOR [facility]
--- NOTE | 2023-03-13 18:40 | NUR ---
CURRENTLY ON HOLD WITH [facility]
[2023-03-13] MEDS ORDERED: KETOROLAC TROMETHAMINE INJ 30 MG/ML VIAL IV ONE (19:00)
[2023-03-13] MEDS ORDERED: KETOROLAC TROMETHAMINE INJ 30 MG/ML VIAL ONE (19:10)
--- NOTE | 2023-03-13 19:51 | NUR ---
REPORT FILED WITH [employer] MUSIC AGENT #[id number]. INCIDENT #[id number].
--- NOTE | 2023-03-13 20:44 | NUR ---
[employer] at bed side
--- NOTE | 2023-03-13 21:54 | NUR ---
PER LAPEzekiel, PT REFUSED TO GO WITH [employer] TO A [facility].
--- NOTE | 2023-03-13 22:00 | NUR ---
PER [employer] PATIENT IS CLEAR ON THEIR BEHALF. PATIENT IS ALSO MEDICALLY CLEAR FROM DR NEWTON
[2023-03-13] MEDS ORDERED: OLANZAPINE ZYDIS 5 MG TAB.RAPDIS SL ONE (22:30)
--- NOTE | 2023-03-13 23:12 | NUR ---
pt was transferred to [facility] in stable condition
--- NOTE | 2023-03-13 23:15 | NUR ---
PATIENT PICKUP BY [facility] IN A STABLE- COOPERATIVE BEHAVIOR FOR TRANSFER- [facility].
== END 2023-03-13 23:15 ==
LOC: ER 21:55
DX: K52.9 Noninfective gastroenteritis and colitis, unspecified (principal); R10.9 Unspecified abdominal pain; F31.9 Bipolar disorder, unspecified; F20.9 Schizophrenia, unspecified; Z20.822 Contact with and (suspected) exposure to COVID-19
CPT/HCPCS: 99285; 74176; 85025; 80048; 87086; 83690; 80076; 84703; 81001; 36415 ×2; 84702; 80143; 80320; 96374; 87426; 80307; J1885; C9803; G0480

== ENCOUNTER 2023-05-25 05:25 | Emergency (ER) | payer MEDICAID ==
[~2023-05-25] VITALS: Ht 144.8 cm; Wt 99.8 kg
[~2023-05-25 05:25] MED LIST changes: +CIPR-262 PO
[2023-05-25] MEDS ORDERED: FAMOTIDINE (20 MG) 20 MG TABLET PO ONE (07:00)
[2023-05-25 07:02] LABS: APPEARANCE,URINE CLEAR (CLEAR); BILIRUBIN,URINE NEGATIVE (NEGATIVE); BLOOD, URINE TRACE-INTA Ery/uL (NEGATIVE); COLOR,URINE YELLOW (YELLOW); KETONES,URINE NEGATIVE (NEGATIVE); LEUKOCYTE ESTERASE ,URINE NEGATIVE (NEGATIVE); NITRITE, URINE NEGATIVE (NEGATIVE); PH,URINE 5.5 (5.0-8.0); PROTEIN,URINE NEGATIVE (NEGATIVE); UGLUCOSE NEGATIVE (NEGATIVE); UROBILINOGEN,URINE 0.2 EU/dL (0.2)
[2023-05-25 07:14] LABS: AMPHETAMINE, URINE NEGATIVE (NEGATIVE); BARBITURATE, URINE NEGATIVE (NEGATIVE); BENZODIAZEPINE, URINE POSITIVE (NEGATIVE); CANNABINOID, URINE NEGATIVE (NEGATIVE); COCCAINE, URINE NEGATIVE (NEGATIVE); PHENCYCLIDINE SCREEN,URINE NEGATIVE (NEGATIVE)
[2023-05-25 07:15] LABS: OPIATE, URINE POSITIVE (NEGATIVE)
[2023-05-25 07:25] LABS: BASOPHILS # (AUTO) 0.1 K/uL (0.0-0.2); BASOPHILS % (AUTO) 0.7 % (0.0-2.0); EOSINOPHILS # (AUTO) 0.1 K/uL (0.0-0.7); EOSINOPHILS % (AUTO) 0.7 % (0.0-6.0); HEMATOCRIT 39 % (33-45); HEMOGLOBIN 12.9 g/dL (11.5-14.8); LYMPHOCYTES # (AUTO) 3.8 K/uL (0.8-4.8); LYMPHOCYTES % (AUTO) 26.2 % (20.0-44.0); MEAN CORPUSCULAR HEMOGLOBIN 30 PG (26.0-33.0); MEAN CORPUSCULAR HGB CONC 33 g/dl (31.0-36.0); MEAN CORPUSCULAR VOLUME 92 fL (82-100); MONOCYTES # (AUTO) 0.9 K/uL (0.1-1.30); NEUTROPHILS # (AUTO) 9.6 K/uL (1.8-8.9); NEUTROPHILS % (AUTO) 66.4 % (43.0-81.0); PLATELET COUNT (AUTO) 334 K/uL (150-450); RED BLOOD CELL COUNT(AUTO) 4.24 MIL/uL (4.0-5.2); RED CELL DISTRIBUTION WIDTH 15.1 % (11.5-15.0); WHITE BLOOD COUNT (AUTO) 14.4 K/uL (4.3-11.0)
[2023-05-25] MEDS ORDERED: FAMOTIDINE (20 MG) 20 MG TABLET ONE (07:37)
[2023-05-25 07:45] LABS: CALCIUM, SERUM 9.6 mg/dL (8.5-10.1); CARBON DIOXIDE 22 mmol/L (21-32); CHLORIDE 105 mmol/L (98-107); CREATININE 0.7 mg/dL (0.6-1.3); GLUCOSE 89 mg/dL (74-106); POTASSIUM 3.9 mmol/L (3.5-5.1); SODIUM SERUM 138 mmol/L (136-145); UREA NITROGEN, BLOOD 17 mg/dL (7-18)
[2023-05-25 07:47] LABS: ACETAMINOPHEN 0 ug/ml (10-30); ALANINE AMINOTRANSFERASE 16 U/L (12-78); ALBUMIN 4.4 g/dL (3.4-5.0); ALCOHOL, BLOOD < 3 mg/dL (0-10); ALKALINE PHOSPHATASE 86 U/L (46-116); ASPARTATE AMINOTRANSFERASE 15 U/L (15-37); BILIRUBIN,DIRECT 0.2 mg/dL (0.0-0.2); BILIRUBIN,TOTAL 0.8 mg/dL (0.2-1.0); SALICYLATE 3.5 mg/dL (2.8-20.0)
[2023-05-25 08:40] LABS: PREGNANCY TEST URINE QUAL NEGATIVE (NEGATIVE)
[2023-05-25 12:41] VITALS: BP 140/85; TEMP 98.6; O2SAT 99
== END 2023-05-25 12:42 ==
LOC: ER 05:26
DX: R45.851 Suicidal ideations (principal); K30 Functional dyspepsia; F20.9 Schizophrenia, unspecified; F31.9 Bipolar disorder, unspecified
CPT/HCPCS: 36415; 80048-TC; 80076-TC; 84703-TC; 85025-TC; G0480

== ENCOUNTER 2023-06-06 17:49 | Emergency (ER) | payer MEDICAID ==
[~2023-06-06] VITALS: Ht 177.8 cm; Wt 86.2 kg
[2023-06-06 18:46] VITALS: BP 143/68; TEMP 98.4; O2SAT 100
[2023-06-06 20:21] LABS: APPEARANCE,URINE SLIGHTLY CLOUDY (CLEAR); BILIRUBIN,URINE NEGATIVE (NEGATIVE); BLOOD, URINE 3+ Ery/uL (NEGATIVE); COLOR,URINE YELLOW (YELLOW); KETONES,URINE NEGATIVE (NEGATIVE); LEUKOCYTE ESTERASE ,URINE TRACE (NEGATIVE); NITRITE, URINE NEGATIVE (NEGATIVE); PROTEIN,URINE 1+ mg/dl (NEGATIVE); UGLUCOSE NEGATIVE (NEGATIVE); UROBILINOGEN,URINE 0.2 EU/dL (0.2)
[2023-06-06 20:26] LABS: PREGNANCY TEST URINE QUAL NEGATIVE (NEGATIVE)
[2023-06-06 20:34] LABS: RBC,URINE 81-100 /HPF (0-2)
[2023-06-06 20:35] LABS: ADD URINE CULTURE NO; BACTERIA,URINE None seen /HPF (None Seen); MUCUS,URINE Moderate /LPF (None Seen)
[2023-06-06 20:47] LABS: BASOPHILS # (AUTO) 0.1 K/uL (0.0-0.2); BASOPHILS % (AUTO) 0.4 % (0.0-2.0); EOSINOPHILS # (AUTO) 0.1 K/uL (0.0-0.7); EOSINOPHILS % (AUTO) 0.5 % (0.0-6.0); HEMATOCRIT 39 % (33-45); HEMOGLOBIN 12.8 g/dL (11.5-14.8); LYMPHOCYTES # (AUTO) 2.8 K/uL (0.8-4.8); LYMPHOCYTES % (AUTO) 21.8 % (20.0-44.0); MEAN CORPUSCULAR HEMOGLOBIN 31 PG (26.0-33.0); MEAN CORPUSCULAR HGB CONC 33 g/dl (31.0-36.0); MEAN CORPUSCULAR VOLUME 93 fL (82-100); MONOCYTES # (AUTO) 0.9 K/uL (0.1-1.30); MONOCYTES % (AUTO) 6.7 % (2.0-12.0); NEUTROPHILS # (AUTO) 9.1 K/uL (1.8-8.9); NEUTROPHILS % (AUTO) 70.6 % (43.0-81.0); PLATELET COUNT (AUTO) 377 K/uL (150-450); RED BLOOD CELL COUNT(AUTO) 4.16 MIL/uL (4.0-5.2); RED CELL DISTRIBUTION WIDTH 14.9 % (11.5-15.0); WHITE BLOOD COUNT (AUTO) 12.9 K/uL (4.3-11.0)
[2023-06-06 20:56] LABS: AMPHETAMINE, URINE NEGATIVE (NEGATIVE); BARBITURATE, URINE NEGATIVE (NEGATIVE); BENZODIAZEPINE, URINE NEGATIVE (NEGATIVE); CANNABINOID, URINE NEGATIVE (NEGATIVE); COCCAINE, URINE NEGATIVE (NEGATIVE); PHENCYCLIDINE SCREEN,URINE NEGATIVE (NEGATIVE)
[2023-06-06 21:00] LABS: OPIATE, URINE POSITIVE (NEGATIVE)
[2023-06-06 21:08] LABS: ALANINE AMINOTRANSFERASE 27 U/L (12-78); ALBUMIN 4.3 g/dL (3.4-5.0); ALCOHOL, BLOOD 24 mg/dL (0-10); ALKALINE PHOSPHATASE 95 U/L (46-116); ASPARTATE AMINOTRANSFERASE 15 U/L (15-37); BILIRUBIN,DIRECT 0.1 mg/dL (0.0-0.2); BILIRUBIN,TOTAL 0.7 mg/dL (0.2-1.0); CALCIUM, SERUM 9.3 mg/dL (8.5-10.1); CARBON DIOXIDE 27 mmol/L (21-32); CHLORIDE 101 mmol/L (98-107); CREATININE 0.9 mg/dL (0.6-1.3); GLUCOSE 95 mg/dL (74-106); POTASSIUM 4.3 mmol/L (3.5-5.1); SODIUM SERUM 136 mmol/L (136-145); TOTAL PROTEIN, SERUM 8.3 g/dL (6.4-8.2); UREA NITROGEN, BLOOD 15 mg/dL (7-18)
[2023-06-06 21:12] LABS: ACETAMINOPHEN 0 ug/ml (10-30); SALICYLATE < 2.3 mg/dL (2.8-20.0)
== END 2023-06-07 00:37 ==
LOC: ER 17:51
DX: R45.851 Suicidal ideations (principal); F20.9 Schizophrenia, unspecified; F31.9 Bipolar disorder, unspecified; Z20.822 Contact with and (suspected) exposure to COVID-19
CPT/HCPCS: 99285; 85025; 80048; 80076; 84703; 81001; 36415; 87426; 80143; 80320; 80307; C9803; G0480